=== PATIENT | male | born 1995 | race African-American/Black ===

== ENCOUNTER 2023-05-31 21:23 | Emergency (ER) | payer SELFPAY ==
[2023-05-31] MEDS ORDERED: Fluorescein Opthalmic Strip ONE (21:35)
== END 2023-05-31 22:26 | disposition home or self-care (01) ==
LOC: CSHERS 21:23
DX: H16.001 Unspecified corneal ulcer, right eye (principal)
CPT/HCPCS: 99282

== ENCOUNTER 2023-12-05 21:01 | Emergency (ER) | payer SELFPAY ==
[2023-12-05 21:55] LABS: SARS-CoV-2 NAA Rapid Test Not Detected (NotDetected)
== END 2023-12-05 22:15 | disposition home or self-care (01) ==
LOC: CSHERS 21:01
DX: B34.9 Viral infection, unspecified (principal)
CPT/HCPCS: 99283